=== PATIENT | male | born 1960 | race Caucasian/White ===

== ENCOUNTER 2017-05-12 20:08 | Emergency (ER) | payer MEDICARE ==
[~2017-05-12 20:08] MED LIST: ACID REDUCER150 MG PO; BAYER CHEWABLE81 MG PO; CARAFATE1 GM PO; CIALIS20 MG PO; ELAVIL50 MG PO; ELIQUIS5 MG PO; OMEPRAZOLE20 M1 PO; OXYCODONE HCL15 MG PO; PERCOCET 10-321 EACH PO; QVAR8.7 G1 INH; TESTOSTERO200 MG/1 M IM; VALIUM5 MG PO; WELLBUTRIN SR200 MG PO; ZANAFLEX4 MG PO; ZOCOR20 MG PO
== END 2017-05-12 21:55 | disposition home or self-care (01) ==
LOC: ER 20:08
DX: S50.01XA Contusion of right elbow, initial encounter (principal); S50.311A Abrasion of right elbow, initial encounter; V29.88XA Motorcycle rider (driver) (passenger) injured in other specified transport accidents, initial encounter; J44.9 Chronic obstructive pulmonary disease, unspecified; Z88.2 Allergy status to sulfonamides
CPT/HCPCS: 73030; 73080; 90471; 90715; 99070; 99283-25